=== PATIENT | female | born 1945 | race Caucasian/White ===

== ENCOUNTER 2022-03-22 10:43 | Outpatient (REF) | payer MEDICARE, MEDICAID, SELFPAY ==
[2022-03-22 13:35] LABS: Hematocrit 31.7 % (37.0-47.0); Hemoglobin 10.1 g/dl (12.0-16.0); Mean Corpuscular HGB Conc 31.9 g/dl (31.0-35.0); Mean Corpuscular Hemoglobin 22.5 pg (27.0-33.0); Mean Corpuscular Volume 70.8 fL (80.0-98.0); Platelet Count 424 X10*3/uL (160-400); Red Blood Count 4.48 X10*6/uL (4.20-5.50); White Blood Count 10.9 X10*3/uL (4.8-10.8)
[2022-03-22 13:36] LABS: Alanine Aminotransferase 11 U/L (0-31); Albumin Level 3.5 g/dL (3.5-5.0); Alkaline Phosphatase 114 U/L (39-117); Anion Gap 13 (12-20); Aspartate Amino Transferase 20 U/L (5-31); Bilirubin Total 0.8 mg/dL (0.0-1.0); Blood Urea Nitrogen 23 mg/dL (9-16); Calcium 9.9 mg/dL (8.4-10.2); Carbon Dioxide 34 mmol/L (22-29); Chloride 94 mmol/L (96-108); Estimated Glomerular Filt Rate 53; Glucose Random 72 mg/dL (60-115); Potassium 3.3 mmol/L (3.3-5.1); Sodium 138 mmol/L (135-145); Total Protein 7.4 g/dL (6.5-8.0); Uric Acid 13.1 mg/dL (2.4-5.7)
[2022-03-22 13:58] LABS: Ferritin 32 ng/mL (10-250)
[2022-03-22 14:11] LABS: Band Neutrophils Percent 0 % (3-5); Basophils Abs Manual 0.2 X10*3/uL (0.0-0.2); Basophils Percent Manual 2 % (0-2); Eosinophils Absolute Manual 0.2 X10*3/uL (0.0-0.4); Eosinophils Percent Manual 2 % (0-4); Lymphocytes Absolute Manual 3.4 X10*3/uL (1.2-4.9); Lymphocytes Percent Manual 31 % (20-40); Monocytes Percent Manual 9 % (2-11); Neutrophils Absolute Manual 6.1 X10*3/uL (2.0-8.3); Neutrophils Percent Manual 56 % (45-73)
[2022-03-22 14:14] LABS: Dohle Bodies PRESENT; Platelet Estimate NORMAL (NORMAL)
[2022-03-22 14:15] LABS: Hypochromasia 2+ (15-30) /OIF; Microcytosis 1+ (5-14) /OIF; Platelet Morphology Comment NORM; RBC Morphology NOTED; Schistocytes 1+ (0-2) /OIF; Target Cells 1+ (5-14) /OIF
[2022-03-22 14:16] LABS: Polychromasia 1+ (0-2) /OIF
== END 2022-03-22 10:44 | disposition home or self-care (01) ==
LOC: HO.10HDL 10:43
PROVIDERS: Visit Provider Internal Medicine
DX: D50.8 Other iron deficiency anemias (principal); E16.1 Other hypoglycemia; I48.91 Unspecified atrial fibrillation; I50.43 Acute on chronic combined systolic (congestive) and diastolic (congestive) heart failure; K74.69 Other cirrhosis of liver; M10.9 Gout, unspecified
CPT/HCPCS: 36415; 80053; 82728; 84550; 85007; 85025; 85027